=== PATIENT | female | born 1985 | race Caucasian/White ===

== ENCOUNTER 2017-08-02 09:30 | Emergency (ER) | payer OTHER ==
[~2017-08-02] VITALS: Ht 170.2 cm; Wt 62.1 kg
[~2017-08-02 09:30] MED LIST: AMITRIPTYLINE H25 M1 PO; ATIVAN1 MG PO; CLONAZEPAM0.5 M2 PO; GABAPENTIN300 M2 PO; LEVSIN0.125 M1 PO; MULTIVITAMIN1 TAB PO; NAPROXEN500 MG PO; PROBIOTIC FORMU1 CAP PO; PROMETHAZINE HC25 M3 PO; SERTRALINE HCL50 MG PO; TYLENOL #31 TAB PO; ZOFRAN ODT4 M1 SL; ZOFRAN ODT4 MG SL; ZOFRAN4 M2 PO
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
[2017-08-02 11:49] LABS: ABSOLUTE BASOPHIL COUNT 0.1 /CUMM (0.0-0.2); ABSOLUTE EOSINOPHIL COUNT 0 /CUMM (0.0-0.7); ABSOLUTE GRANULOCYTE CT 7.3 /CUMM (1.4-6.5); ABSOLUTE LYMPH COUNT 1.2 /CUMM (1.2-3.4); ABSOLUTE MONOCYTE COUNT 0.5 /CUMM (0.10-0.60); BASOPHIL % 0.6 % (0.0-2.0); EOSINOPHIL % 0 % (0-5); GRANULOCYTE % 80.2 % (42.2-75.2); HEMATOCRIT 42.3 % (37-47); MEAN CORPUSCULAR HGB 29.5 PG (27.0-31.0); MEAN CORPUSCULAR HGB CONC 34.3 G/DL (33.0-37.0); MEAN CORPUSCULAR VOLUME 86.2 FL (81.0-99.0); MEAN PLATELET VOLUME 10.2 FL (7.4-10.4); PLATELET COUNT 203 /CUMM (130-400); RED BLOOD CELL CT 4.91 /CUMM (4.20-5.40); WHITE BLOOD CELL COUNT 9.1 /CUMM (4.8-10.8)
[2017-08-02 14:46] VITALS: BP 108/62
[2017-08-02] MEDS ORDERED: ATIVAN1 M1 PO (15:51)
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
== END 2017-08-02 16:30 ==
LOC: ERH 09:30
PROVIDERS: Physician Assistant Medical
DX: F41.9 Anxiety disorder, unspecified (principal); F41.0 Panic disorder [episodic paroxysmal anxiety]
CPT/HCPCS: 80307; 96361; 96374; G0463; G0480